=== PATIENT | male | born 1975 | race Caucasian/White ===

== ENCOUNTER 2017-05-08 18:15 | Emergency (ER) | payer OTHER ==
[2017-05-08 18:24] VITALS: BP 119/72; PULSE 111; TEMP 99.2; BMI 20.9
--- NOTE | 2017-05-08 19:50 | PDOC ---
History of Present Illness - General Chief Complaint: Cold Symptoms Stated Complaint: HEADACHE/FEVER Time Seen by Provider: 05/08/17 19:20 History Source: Patient Exam Limitations: No Limitations - History of Present Illness Initial Comments: 05/08/17 19:47 My chief complaint: Nasal congestion pressure behind eyes and bilateral cheek areas and cough History of present illness: Patient is a 41-year-old male with a history of HIV and has been treated and viral load is currently undetectable according to patient who presents today with nasal congestion with sinus pressure behind eyes and maxillary and with a cough with clear phlegm. Patient also reports generalized body aches patient reports having a low-grade fever a few days ago. She denies any shortness of breath or difficulty breathing or swallowing. Timing/Duration: getting worse Severity: moderate Associated Symptoms: reports: other (SINUS PRESSURE, COUGH CLEAR PHELGM ) Past History - Past Medical History Allergies/Adverse Reactions: Allergies Allergy/AdvReac Type Severity Reaction Status Date / Time No Known Allergies Allergy Verified 05/08/17 18:24 Home Medications: Ambulatory Orders Elviteg/Sari/Emtric/Tenofo Dis [Stribild Tablet] 1 each PO HS 08/27/15 Valacyclovir HCl [Valtrex -] 1,000 mg PO HS 08/27/15 Azithromycin [Zithromax 250mg Tablets -] 250 mg PO UTDICT #6 tab 05/08/17 Fexofenadine HCl [Shayla Allergy] 180 mg PO DAILY #7 tablet 05/08/17 Guaifenesin Dm [Mucinex Dm -] 1 tab PO Q12H PRN #10 tab.er.12h MDD 2 05/08/17 - Immunization History Immunization Up to Date: Yes - Suicide/Smoking/Psychosocial Hx Smoking Status: Yes Smoking History: Current every day smoker Have you smoked in the past 12 months: Yes Number of Cigarettes Smoked Daily: 10 Information on smoking cessation initiated: No Hx Alcohol Use: No Drug/Substance Use Hx: No Substance Use Type: Marijuana Review of Systems - Review of Systems Able to Perform ROS?: Yes Constitutional: No: Symptoms Reported HEENTM: Yes: Nose Congestion, Other (SINUS PRESSURE ) Respiratory: Yes: Productive cough (CLEAR ). No: Cough, Shortness of Breath, SOB with Exertion, SOB at Rest, Stridor, Wheezing Cardiac (ROS): No: Symptoms Reported ABD/GI: No: Symptoms Reported Musculoskeletal: No: Symptoms Reported Integumentary: No: Symptoms Reported Neurological: No: Symptoms reported *Physical Exam - Vital Signs Last Vital Signs Temp Pulse Resp BP Pulse Ox 99.2 F 111 H 20 119/72 98 05/08/17 18:20 05/08/17 18:20 05/08/17 18:20 05/08/17 18:20 05/08/17 18:20 - Physical Exam General Appearance: Yes: Appropriately Dressed HEENT: positive: TMs Normal, Nasal Congestion, Sinus Tenderness (MINIMAL MAXILLA B/L, ETHMOID ). negative: Pharyngeal Erythema, Tonsillar Exudate, Tonsillar Erythema Neck: negative: Lymphadenopathy (R), Lymphadenopathy (L) Respiratory/Chest: positive: Lungs Clear, Normal Breath Sounds. negative: Chest Tender, Respiratory Distress Cardiovascular: positive: Regular Rhythm, Regular Rate, S1, S2 Integumentary: positive: Normal Color Neurologic: positive: Alert, Normal Response Medical Decision Making - Medical Decision Making 05/08/17 19:50 Patient is a 41-year-old male with a history of HIV and has been treated and viral load is currently undetectable according to patient who presents today with nasal congestion with sinus pressure behind eyes and maxillary and with a cough with clear phlegm. Patient also reports generalized body aches patient reports having a low-grade fever a few days ago. She denies any shortness of breath or difficulty breathing or swallowing. Bronchitis Nasal congestion PLAN: azithromycin 250 mg 2 tabs today than one tab daily for following 4 days Mucinex DM 2 tabs q 12 hr prn cough X 5 days shayla 180 mg daily for 7 days *DC/Admit/Observation/Transfer Diagnosis at time of Disposition: Bronchitis, Sinus pressure - Discharge Dispostion Disposition: HOME Condition at time of disposition: Stable - Referrals Referrals: STAFF,NOT ON [Primary Care Provider] - - Patient Instructions Additional Instructions: Drink a lot a fluids and rest Follow-up with your primary care provider within the next few days Return to emergency room if any difficulty breathing or any new symptoms develop Patient voiced understanding of discharge instructions and all questions were answered Thank you for choosing [facility] to major medical needs today - Post Discharge Activity
== END 2017-05-08 20:03 | disposition home or self-care (01) ==
LOC: JERFT 18:15
DX: J40 Bronchitis, not specified as acute or chronic (principal); J34.89 Other specified disorders of nose and nasal sinuses
CPT/HCPCS: 99281-25

== ENCOUNTER 2018-06-03 13:13 | Emergency (ER) | payer OTHER ==
[2018-06-03 14:03] VITALS: BP 127/77; PULSE 80; TEMP 98.6; BMI 20.6
--- NOTE | 2018-06-03 14:24 | PDOC ---
History of Present Illness - General Chief Complaint: Cold Symptoms Stated Complaint: DIFFICULTY BREATHING Time Seen by Provider: 06/03/18 14:18 - History of Present Illness Initial Comments: 06/03/18 14:22 6-year-old male with a past medical history significant for HIV. He states his CD4 count was about 600 presents for evaluation of cough 1 week. Low-grade fever at home. Past History - Past Medical History Allergies/Adverse Reactions: Allergies Allergy/AdvReac Type Severity Reaction Status Date / Time No Known Allergies Allergy Verified 06/25/17 08:55 Home Medications: Ambulatory Orders Elviteg/Cob/Emtri/Tenofo Disop [Stribild Tablet] 1 each PO HS 08/27/15 Valacyclovir HCl [Valtrex -] 1,000 mg PO HS 08/27/15 Azithromycin [Zithromax 250mg Tablets -] 250 mg PO UTDICT #6 tab 05/08/17 Fexofenadine HCl [Shayla Allergy] 180 mg PO DAILY #7 tablet 05/08/17 Guaifenesin Dm [Mucinex Dm -] 1 tab PO Q12H PRN #10 tab.er.12h MDD 2 05/08/17 Albuterol Sulfate Inhaler - [Ventolin HFA Inhaler -] 1 - 2 inh PO Q4H #1 inhaler 06/25/17 Amox-Tr/K Cl [Augmentin 875Mg Tablet] 1 tab PO BID #20 tablet 06/25/17 Sulfamethoxazole/Trimethoprim [Bactrim Ds -] 1 tab PO BID #28 tablet 06/03/18 COPD: No - Immunization History Immunization Up to Date: Yes - Suicide/Smoking/Psychosocial Hx Smoking Status: Yes Smoking History: Current every day smoker Have you smoked in the past 12 months: Yes Number of Cigarettes Smoked Daily: 5 Information on smoking cessation initiated: Yes 'Breaking Loose' booklet given: 06/03/18 Hx Alcohol Use: No Drug/Substance Use Hx: No Substance Use Type: Marijuana Review of Systems - Review of Systems Constitutional: Yes: Fever Respiratory: Yes: Cough All Other Systems: Reviewed and Negative *Physical Exam - Vital Signs Last Vital Signs Temp Pulse Resp BP Pulse Ox 98.6 F 80 16 127/77 99 06/03/18 14:01 06/03/18 14:01 06/03/18 14:01 06/03/18 14:01 06/03/18 14:01 - Physical Exam Comments: 06/03/18 14:23 HEAD: NC/AT EYES: Conjuntiva clear Ears: Canals and TM's normal NOSE: No d/c THROAT: Moist mucous membrances, oral pharanx clear, uvula midline NECK: Supple without adenopathy CARDIAC: S1 S2 LUNGS: CTA Full and Equal breath sounds ABDOMEN: Soft NT ND MS: Full ROM in all joints without edema NEUROLOGIC: No gross sensory or motor deficits, NVID SKIN: Normal color and temperature no lesions or rashes *DC/Admit/Observation/Transfer Diagnosis at time of Disposition: Bronchitis - Discharge Dispostion Disposition: HOME Condition at time of disposition: Stable Decision to Admit order: No - Prescriptions Prescriptions: Sulfamethoxazole/Trimethoprim [Bactrim Ds -] 1 tab PO BID #28 tablet - Referrals Referrals: Ke Maloney [Non Staff, Medical] - - Patient Instructions Printed Discharge Instructions: DI for Acute Bronchitis Additional Instructions: Please take the medication as directed return to the emergency room should symptoms worsen or go unresolved follow-up with her primary care physician in one to 2 days - Post Discharge Activity
== END 2018-06-03 14:29 | disposition home or self-care (01) ==
LOC: JERFT 13:13
DX: J40 Bronchitis, not specified as acute or chronic (principal); Z21 Asymptomatic human immunodeficiency virus [HIV] infection status; F17.210 Nicotine dependence, cigarettes, uncomplicated
CPT/HCPCS: 99281-25